=== PATIENT | male | born 1980 | race Hispanic/Latino ===

== ENCOUNTER 2016-06-27 13:43 | Inpatient (IN) | payer SELFPAY ==
[2016-06-27] VITALS (8 sets, daily range): BP systolic 130–135; BP diastolic 73–81; PULSE 88–115; RESP 15–20; O2SAT 95–98
[~2016-06-27] VITALS: Ht 175.3 cm; Wt 58.2 kg
[~2016-06-27 13:43] MED LIST: LEVO750T9 PO
[2016-06-27] MEDS ORDERED: 0.9% Sodium Chloride 1,000 ML IV ONE ×2 (14:15→15:10)
--- NOTE | 2016-06-27 14:15 | ED.REPORT ---
HPI-Syncope Date of Service Jun 27, 2016 ED Provider: Cooper Pat MD History of Present Illness: Send from Urgent Care Pt is a 36 y.o. Bangladeshi-speaking male who presents to the ED from after having 2 syncopal episodes in the office after coughing. Pt reports that he only remembers getting dizzy at the office. Associated white productive cough, fatigue, chills, diaphoresis, SOB, and pain between shoulder blades onset last night. Pt states sx are similar to when he has had pneumonia in the past, yet more painful. He denies recent sick contacts. During exam aerial photograph interpreter machine was cutting in and out and questions and responses had to be repeated multiple times. Nursing Notes Stated Complaint: SYNCOPE Chief Complaint: General Complaint Nursing Notes Reviewed: Yes (Y) Allergies: Coded Allergies: No Known Allergies (Verified Allergy, Unknown, 11/25/15) Scheduled Levofloxacin (Levaquin) 750 Mg Tablet 750 MG PO DAILY General Time Seen by Provider: 14:03 Chief Complaint Lost consciousness Syncope Description: Multiple episodes Hx Obtained From: Patient Arrived By: Walk-in Onset Occurred: Just prior to arrival Progression Since Onset: Resolved Location: : Back Quality: Painful Severity: Current: Severe Recent Healthcare: Recent doctor visit Similar Sx Previous: Yes Past Medical History Past Medical History none reported Past Surgical History none reported Smoking History Current Every Day Smoker Social History Alcohol Use: 3-5 per day Drug Use: Denies drug use Occupation lives with girlfriend, work at [employer] Ambulatory Status Independent Review of Systems Constitutional: Reports: Chills, Fatigue Respiratory: Reports: Prod cough, white, Shortness of breath Musculoskeletal: Reports: Back pain Skin: Reports Diaphoresis Neurologic: Reports: Syncope Complete sys rev & neg: except as marked. Physical Exam Initial Vital Signs Vital Signs (First) Date Time Temp Pulse Resp B/P Pulse Ox O2 Delivery O2 Flow Rate FiO2 06/27/16 13:43 38.0 93 15 130/73 98 Room Air Initial VS: Reviewed, Vital signs abnormal Head / Eyes: Atraumatic, Normocephalic Abdomen / GI: No distention Upper Extremities: Vascular intact, Neuro intact Skin: Warm, Dry, No cyanosis Psychiatric: Mood/affect normal, Behavior normal, Normal thought content General/Constitutional: Awake, Alert, Not toxic appearing Distress / Hydration: Positive: Dehydration mild Appearance / Presentation: Positive: Cachectic Appears fatigued Rigors and chills so severe it is difficult for pt to hold onto Tylenol Respiratory / Chest: Atraumatic, No respiratory distress Coarse lung sounds bilaterally with scattered rhonchi Cardiovascular: Regular rhythm, No murmurs, No rubs, Peripheral circulation NL Heart Rate / Rhythm: Positive: Tachycardia Lower Extremity / Pelvis / MS: Atraumatic, Inspection NL, No deformity, Neurologic intact, Vascular intact Neurologic: Oriented X3, Speech NL Interpretation & Diagnostics Lab Results Interpretation Result Diagram: 06/27/16 1400 06/27/16 1400 Test 06/27/16 14:00 White Blood Count 17.3th/mm3 (3.8-10.1) Red Blood Count 4.97mil/mm3 (4.40-5.80) Hemoglobin 15.2g/dL (13.8-17.2) Hematocrit 43.3% (41.0-50.0) Mean Corpuscular Volume 87.1fL (81-100) Mean Corpuscular Hemoglobin 30.6pg (27.0-35.0) Mean Corpuscular Hemoglobin Concent 35.1% (32.0-37.0) Red Cell Distribution Width 12.5% (12.3-15.4) Platelet Count 327bil/L (150-400) Neutrophils (%) (Auto) 89.2% (40-74) Lymphocytes (%) (Auto) 5.4% (14-46) Monocytes (%) (Auto) 5.0% (4-12) Eosinophils (%) (Auto) 0% (0-5) Basophils (%) (Auto) 0.2% (0-3) D-Dimer 1.6mg/L (<0.50) Sodium Level 130mEq/L (134-144) Potassium Level 3.9mEq/L (3.5-5.2) Chloride Level 88mEq/L (97-108) Carbon Dioxide Level 20mmol/L (18-29) Blood Urea Nitrogen 11mg/dL (6-20) Creatinine 0.57mg/dL (0.76-1.27) Estimat Glomerular Filtration Rate 172mL/min (>59) Glucose Level 105mg/dL (60-99) Lactic Acid Level 2.8mmol/L (0.4-2.0) Calcium Level 8.9mg/dL (8.5-10.1) Total Bilirubin 0.6mg/dL (0.0-1.2) Aspartate Amino Transf (AST/SGOT) 64U/L (0-50) Alanine Aminotransferase (ALT/SGPT) 43U/L (0-44) Alkaline Phosphatase 119U/L (25-150) Total Protein 6.9g/dL (6.4-8.4) Albumin 4.3g/dL (3.4-5.0) Lab Results Interpretation: CBC positive leukocytosis next Jeff CMP mild hyponatremia Lactic acid elevated D-dimer elevated Blood cultures 2 pending Fungal blood cultures 2 pending Sputum culture for acid fast bacilli initiated RT consulted Point of Care Testing: Lactate elevated ECG Interpretation Time: 14:27 Interpreted by: ED physician Normal ECG Interpretation: Normal sinus rhythm, No acute ischemic changes Rhythm / Conduction: Tachycardia (rate of ) CBC Interpretation WBC elevated Cardiac / Vascular Interp D-Dimer elevated X-Ray Chest Interpretation Chest Xray Interpretation: IMPRESSION: No acute cardiopulmonary disease. Dictated by: Lukasz Canales MD on 06/27/16 at 15:00 Approved by: Lukasz Canales MD on 06/27/16 at 15:00 CT Chest Interpretation IMPRESSION: 1. No evidence for central pulmonary embolism. 2. Bilateral nodular infiltrates. Several nodules demonstrate appearance of central cavitation. There is peripheral halo pulmonary nodules. Differential diagnoses include atypical infections including fungal or mycobacterial pneumonia. Recommend clinical correlation. 3. Hepatic steatosis. Dictated by: Lukasz Canales M.D. on 06/27/2016 at 16:29 Approved by: Lukasz Canales M.D. on 06/27/2016 at 16:32 Re-Eval/Medical Decision Med Decision/Clinical Course This is a 36-year-old male who is sent over from urgent care having had sick B after coughing spell. The patient moved from [place] 17 years ago, has been vaccinated with BCG but has never had a known TB exposure or history of prior TB. He has noted an unintentional incidental 30 pound weight loss he estimates over the past few months, some night sweats, and then 2 days ago started developing increasing cough with clear sputum-no hemoptysis-and shaking chills. He presents febrile, with pronounced rigors today. He does not feel dyspneic. He has nausea. Exam he does appear ill. He is no longer hypotensive he was initially hypotensive immediately following his syncope according to urgent care, and had no episodes of hypotension in the ED. However again he does appear ill, slightly diaphoretic and incredibly fatigued. He has rigors intermittently-to the point that he had challenges taking his oral Tylenol for his fever due to the rigors. He has a few scattered rhonchi, but again is not tachypneic or dyspneic although is mildly tachycardic. I do not appear she murmurs. He has no swelling in his lower extremities, and I do not appreciate clear findings of suggest pulmonary embolus, but due to his tachycardia he has PERC positive. His chest x-ray was negative. His blood work is notable for an elevated lactic acid, severe leukocytosis and blood cultures are pending. At this point the negative chest x-ray, highly concerning clinical presentation most suspicious for pneumonia and PE, but having symptoms to the point this syncope, a d-dimer was added and it was positive and sent for the CT angiogram underwent. PE protocol. This was negative for PE, but positive for nodular pneumonia, with cavitation component, racing the spectrum of tubercular, or fungal etiologies. The patient is placed in isolation. Acid-fast sputums have been ordered. I consulted with infectious disease recommends treatment with ceftriaxone and Zithromax while pursuing the isolation, acid-fast bacilli. He requested adding the urine antigens for Legionella and strep pneumo, so these been ordered. The patient received IV fluids, Tylenol and is improved. And is being admitted for further management. Source of Hx: Old records Re-Evaluation/Progress #1: Time of Eval: 15:47 Re-Evaluation/Progress Note: Pt rechecked. Discussed lab results and need for CT, pt understands and agrees with plan. Re-Evaluation/Progress #2: Time of Eval: 16:36 Re-Evaluation/Progress Note: Pt rechecked. Discussed need for admit, pt undertsands and agrees with plan. Pt denies hx of TB or contact with anyone who had TB. He reports that he had a BHCG vaccination in the past. Other than immigrating from [place] 17 years ago he has not traveled. Consultation #1: Referral / Consult Name: Mauro Nassar MD Call Returned at: 16:44 Director Of Materials Management: Will see patient Note: Consulted with Dr. Nassar, infectious disease, about pt's differential diagnosis of TB. Recommends isolation and ordering AFB. States Quantiferon Gold is not extremely useful in this situation. Will see pt tomorrow. Consultation #2: Referral / Consult Name: William Webster Ramona DO Consulted With: Hospitalist Call Returned at: 17:10 Director Of Materials Management: Will see patient, Agrees with eval, Agrees with plan, Accepts admit Note: Discussed pt condition, differential dx of TB, and consult with Dr. Nassar. Dr. Webster accepts admit. Differential Diagnosis: Positive: Sepsis, Negative: Acute coronary syndrome, Alcohol abuse, Anemia, Autonomic dysfunction, Cerebrovascular accident, Chest pain, acute, Hypoglycemia, Myocardial infarction Discharge & Departure Impression: Primary Impression: Pneumonia Pneumonia type: due to unspecified organism Laterality: unspecified laterality Lung location: unspecified part of lung Qualified Code: B99.9 - Unspecified infectious disease Additional Impressions: Syncope Syncope type: unspecified Qualified Code: R55 - Syncope and collapse Night sweats Cavitating mass of lung Disposition: ADMITTED TO HOSPITAL Discharge Condition All VS Reviewed: Yes Condition: Stable Referrals: NOPCP (PCP) [facility] Attestation Portions of this note were transcribed by Lonny Toscano. I, Dr. Pat personally performed the history, physical exam and medical decision-making; I reviewed and confirmed the accuracy of the information in the transcribed note. Signed by: Ct To, 06/27/16 and [id number]. copies to: [facility] Cooper Pat MD Jun 27, 2016 14:15 LONNY TOSCANO Jun 27, 2016 14:39
[2016-06-27 14:27] LABS: BASOPHILS % (AUTO) 0.2 % (0-3); EOSINOPHILS % (AUTO) 0 % (0-5); Mean Corpuscular Hemoglobin 30.6 pg (27.0-35.0); Mean Corpuscular Volume 87.1 fL (81-100); NEUTROPHILS % (AUTO) 89.2 % (40-74); Platelet Count 327 bil/L (150-400)
--- NOTE | 2016-06-27 15:16 | DRSVH ---
PROCEDURE: X-RAY CHEST ONE VIEW, PORTABLE ([id number]) INDICATIONS: fever, cough, syncope TECHNIQUE: One view of the chest was acquired. COMPARISON: [facility], CR, XR CHEST 2VW, 11/25/2015, 14:57. FINDINGS: Surgical changes and devices: None. Lungs and pleura: No pleural effusions or pneumothorax. Lungs are clear. Mediastinum: Mediastinal contours appear normal. Heart size is normal. Bones and chest wall: No suspicious bony lesions. Overlying soft tissues appear unremarkable. IMPRESSION: No acute cardiopulmonary disease. Dictated by: Lukasz Canales M.D. on 06/27/2016 at 15:00 Approved by: Lukasz Canales M.D. on 06/27/2016 at 15:00
--- NOTE | 2016-06-27 16:33 | DRSVH ---
PROCEDURE: CT ANGIO CHEST PULMONARY EMBOLISM ([id number]) INDICATIONS: CP, Syncope, Dimer + TECHNIQUE: After the administration of intravenous contrast, 2 mm thick sections acquired from the pulmonary api elmer to the posterior costophrenic angles. 3-dimensional maximum intensity projection (MIP) coronal a nd sagittal reformats were then acquired through the thorax. For radiation dose reduction, the follo wing was used: automated exposure control, adjustment of mA and/or kV according to patient size. COMPARISON: [facility], CR, XR CHEST 1VW (PORTABLE), 06/27/2016, 14:38. [facility], CR, XR CHEST 2VW, 11/25/2015, 14:57. FINDINGS: Image quality: Excellent. Pulmonary arteries: Pulmonary arteries are normal in size, and demonstrate no intraluminal filling d efects to suggest central pulmonary embolism. Lungs and pleura: There are multiple lung nodules bilaterally involving the right upper, middle and l ower lobes and left lower lobe. Several nodules demonstrate central cavitation. Many nodules have per ipheral halo. No pleural effusions or pneumothorax. Central and peripheral airways are patent. Mediastinum: Heart size is normal, without pericardial effusion. No mediastinal or hilar adenopathy . Thoracic aorta is normal in caliber and enhancement. Esophagus is normal in caliber, without hiat al hernia. Bones and chest wall: No suspicious bony lesions. Ribs and thoracic spine appear intact throughout. Thyroid gland is normal. No axillary or supraclavicular adenopathy. Abdomen: There is hepatic fatty infiltration. Visualized upper abdominal solid organs appear normal in the early arterial phase of enhancement. IMPRESSION: 1. No evidence for central pulmonary embolism. 2. Bilateral nodular infiltrates. Several nodules demonstrate appearance of central cavitation. There is peripheral halo pulmonary nodules. Differential diagnoses include atypical infections including f ungal or mycobacterial pneumonia. Recommend clinical correlation. 3. Hepatic steatosis. Dictated by: Lukasz Canales M.D. on 06/27/2016 at 16:29 Approved by: Lukasz Canales M.D. on 06/27/2016 at 16:32
[2016-06-27] MEDS ORDERED: cefTRIAXone Inj 2,000 MG in Dextrose 5% 50 ML IV ONE (16:50)
[2016-06-27] MEDS ORDERED: Vancomycin Dose per Pharmacist XX ONE (16:50)
[2016-06-27] MEDS ORDERED: Vancomycin Inj 1,250 MG in 0.9% Sodium Chloride 250 ML IV ONE (17:00)
[2016-06-27] MEDS ORDERED: Alum-Mag Hydrox-Simeth 30 mL Suspension PO PRN (17:15)
[2016-06-27] MEDS ORDERED: Polyethylene Glycol (PEG) 17 Gm Powder PO PRN (17:15)
[2016-06-27] MEDS ORDERED: Ondansetron 2 mg/mL 2 mL Inj IVPUSH PRN (17:15)
[2016-06-27] MEDS: cefTRIAXone Inj 2,000 MG in Dextrose 5% Minibag Plus 50 ML IV SCH (17:20)
--- NOTE | 2016-06-27 17:29 | PCM.HPMED ---
Subjective Date of Service Jun 27, 2016 Primary Provider: Admitting Physician: Khoi Avendaño MD Primary Care Physician: Nopcp Attending Physician: Khoi Avendaño MD Chief Complaint: Worsening cough, chills, sweats, and fever. History of Present Illness: Patient is a 36-year-old male moved from [place] 17 years ago presenting to the emergency room on referral from urgent care facility following presentation for 2 syncopal episodes yesterday and today in addition to worsening cough chills sweats and fever noted over past few days. More chronically patient has noted a decreased appetite and approximate 30 pound weight loss over the past couple of months. Additionally night sweats separate from the worsening chills and fevers experienced over past day and a half, have been present for a number of weeks though he is not precisely sure duration. 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 Specifically he denies any contact or exposure with persons infected with tuberculosis, influenza, or pneumonia. Patient further notes that he did receive a tubercular vaccine while [place] many years prior, never had a known exposure. His medical history is otherwise relatively benign, he takes no medications, and has never had any surgeries. Your evaluation demonstrated lactic acidosis hypoxia leukocytosis, and CT findings demonstrating cavitary lesions concerning for not only pneumonia or possible tubercular or other pulmonary process. Infectious disease specialist was notified from ER and recommended obtaining sputum samples, negative isolation, refraining from extensive tubercular evaluation at this time rather opting for supportive care treatment of community-acquired infection and further observation. Patient was in stable condition at time my evaluation ER, noted already feeling somewhat improved since IV therapy, not currently experiencing sweats or chills, and in fact did have some appetite. No histologic some increased work of breathing, he denied any chest pains also denied any palpitations. As noted he had appetite while in ER and denied any nausea vomiting abdominal pain or other gastrointestinal symptoms. Also denied any dizziness blurred vision, and has not had a recurrence of lightheadedness since his arrival to the emergency department though he is also not risen from the bed. 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 He is mildly diaphoretic and skin is warm to touch, cheeks are flushed, extremities are warm and well-perfused. Oropharynx demonstrates erythema, with a white coating of tongue. Significant anterior cervical lymphadenopathy is noted bilaterally. Pupils are round reactive to light and accommodation Lung jerry demonstrate coarse breath sounds without overt consolidation. Wheezing is noted on expiration. Heart demonstrates an elevated rate but irregular rhythm. No murmurs rubs or gallops. Abdomen is soft and nontender. No organomegaly noted on palpation. Normoactive bowel sounds Extremities are thin but well perfused. No edema is noted no calf pain on palpation. Neurologic exam is nonfocal, no tremors or other gross abnormality is noted during my examination. Skin exam is essentially benign no rashes or other lesions. Lab and Diagnostics Result Diagram: 06/27/16 1400 06/27/16 1400 Assessment & Plan 36-year-old male immigrated from [place] 17 years ago presenting today on referral from urgent care for fever cough chills, syncopal episodes and recent history of night sweats, in addition to 30 pound weight loss, admitted for further evaluation and treatment for evident pneumonia with possible tubercular infection. 1. Sepsis secondary to pneumonia - Patient demonstrating fever, leucocytosis, tachycardia meeting sirs criteria in addition to an organ failure evidenced by hypoxia in addition to elevated lactic acid level. - As per recommendations from infectious disease specialist Dr. Maruo Nassar, will place patient on antibiotics appropriate for community-acquired pneumonia at this time, while additionally placing patient in negative isolation room to consider additional diagnoses including tubercular infection discussed below. - We will continue patient on intravenous fluids, trend serial lactic acid levels to assess for response of therapy. - Supplemental oxygen provided as needed. - Additional studies pending including urine strep and Legionella antibodies, and addition to fungal blood cultures which can account for cavitating lung lesions. - Patient currently placed on Rocephin and azithromycin cover community- acquired infection only. 2. Cavitating lung lesions/recent weight loss /possible tuberculosis infection - On request from infectious disease specialist will refrain from further workup of possible tubercular disease aside from sputum cultures obtained in emergency department - Additional studies as noted above, to evaluate further for underlying cause. 3. Syncopal episode - Likely secondary to dehydration and hypotension in the setting of severe infection. - Patient has responded well to volume repletion, continue to monitor at this time but no further intervention aside from volume resuscitation. 4. Transaminitis - Etiology is unclear, may be related to alcohol use, nonalcoholic fatty liver disease/panic steatosis, but also could have viral etiology - Current studies pending include acute hepatitis panel, will continue to trend liver functions. 5. Hyponatremia - Again likely secondary to volume depletion, continue intravenous fluids at 100 mL per hour in addition to allowing oral intake. - Follow-up a.m. levels. Pain Evaluation: Adequate Pain Control GI Prophylaxis: Not indicated VTE Prophylaxis: SCDs Resuscitation Status: CPR: Attempt Resuscitation Time spent 50 minutes William Webster DO Jun 27, 2016 17:29
[2016-06-27] MEDS ORDERED: Azithromycin Inj 500 MG in Dextrose 5% w/Vial Mate 250 ML IV ONE (17:40)
[2016-06-27 18:11] LABS: APPEARANCE,URINE CLEAR (CLEAR,HAZY); COLOR,URINE YELLOW (YELLOW); OCCULT BLOOD,URINE TRACE (NEGATIVE); UROBILINOGEN,URINE NORMAL (NORMAL)
[2016-06-27] MEDS: 0.9% Sodium Chloride 1,000 ML IV SCH (18:31)
--- NOTE | 2016-06-27 19:06 | NUR ---
Admit Arrived to [facility] room 1001 via stretcher at 18:25. Report received from Nilda in the ER. Pt is alert and oriented, with chills and rigors. Febrile, otherwise VSS, although HR is very irregular. Obtained orders for tele and admin IVF and antibiotics as ordered. Repeat lactic acid pending. Primarily Syriac speaking, although he does understand and speak some Chilean. Educated pt and girlfriend on airborne respirator precautions.
[2016-06-27 19:50] LABS: Magnesium 1.5 mg/dL (1.6-2.6)
[2016-06-28] VITALS (8 sets, daily range): BP systolic 122–135; BP diastolic 73–81; PULSE 65–82; RESP 16–20; O2SAT 95–98
--- NOTE | 2016-06-28 02:56 | NUR ---
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 pt denies taking any home medications. he complained of pain in his back that he feels is his lungs hurting. he said the pain was a 6/10. he was given 650mg of PO tylenol and said his pain was "much better" upon reassessment. pt still has rigors and chills needs SBA to the bathroom. early on in the shift pt girlfriend helped pt to the bathroom and he urinated in the toilet. it was explained to pt that he needed to go in the urinal and he was reminded to call nursing staff before getting up. urinal is a bedside, urine sample is still needed. pt lactic acid were 1.1 and 0.7, was notified who gave the ok to cancel the 3rd lactic acid since they had normalized. HR was elevated at start of shift and monitoring analyst called once to say HR was up into the 140s, the pt was out of bed at the time. however HR has decreased throughout the shift and he is now SR 60-70s. BP is stable and he is currently afebrile. care continues.
[2016-06-28] MEDS: 0.9% Sodium Chloride 1,000 ML IV SCH ×2 (05:17→15:21)
[2016-06-28 05:56] LABS: BASOPHILS % (AUTO) 0.1 % (0-3); EOSINOPHILS % (AUTO) 0.2 % (0-5); MONOCYTES % (AUTO) 5.5 % (4-12); Mean Corpuscular Hemoglobin 30.8 pg (27.0-35.0); Mean Corpuscular Volume 88.5 fL (81-100); NEUTROPHILS % (AUTO) 82.9 % (40-74); Platelet Count 225 bil/L (150-400)
[2016-06-28] MEDS: Azithromycin Inj 500 MG in Dextrose 5% w/Vial Mate 250 ML IV SCH (10:37)
--- NOTE | 2016-06-28 12:44 | NUR ---
Social Work-screening: Data:EMR reviewed. Pt is a 36 y/o male who was admitted on 06/27/16 for pneumonia per H&P. Pt does not have insurance or PCP. PT resides at home with his family where he remains independent with ADLs. Per RN notes, pt has been up independent in his room. Medical team ruling pt out for TB. ID Md to see pt. RCA saw pt and screened, pt is over income for Medicaid services. [facility] application has been provided. Pt may benefit from PCP appointment through [facility] due to having sliding scale. No anticipated discharge needs. SW will continue to follow if needs arise. Assessment:Pt who is independent at baseline. Plan:Pt to discharge home when medically stable via POV. [facility] application has been provided. No anticipated discharge needs. SW will continue to follow if needs arise. JOSE FRANCISCO Scott
--- NOTE | 2016-06-28 15:22 | PCM.PNMED ---
Subjective Date of Service Jun 28, 2016 Subjective reports night sweats. otherwise, denies any new issues/complaints. Exam Vital Signs Vital Sign - Last Date Time Temp Pulse Resp B/P Pulse Ox O2 Delivery O2 Flow Rate FiO2 06/28/16 10:45 77 06/28/16 10:32 37.0 16 135/80 96 Room Air Intake and Output 06/27/16 06/27/16 06/28/16 Cumulative From/Thru 15:00 23:00 07:00 06/27/16 13:43 - 06/28/16 06:19 Intake Total 1000 ml 2299 ml 3299 ml Output Total 900 ml 900 ml Balance 1000 ml 1399 ml 2399 ml Intake Oral 1200 ml 1200 ml IV Total 1000 ml 1099 ml 2099 ml Output Urine Total 900 ml 900 ml # Voids 3 3 # Bowel Movements 1 1 General: Alert, Cooperative, No Acute Distress Eyes: Scleral Anicteric Nose: Mucous Membr Moist/[place] Mouth: Mucous Membr Moist/[place] Neck: Supple Chest & Lungs: Chest Wall Normal, Clear to auscultation & percussion Cardiovascular: Regular Rate/Rhythm Pulses: NL carotid, radial, femoral, DP, PT Abdomen: Non-tender, Non-distended, Normoactive bowel tones, Soft Extremities: No cyanosis/clubbing/edma bilat Neurological: Grossly Neurologically Intact, Normal Speech IVs and Medications Medications Reviewed: Medications were reviewed in detail Lab and Diagnostics Result Diagram: 06/28/1652906/28/16529 Assessment & Plan 36-year-old male immigrated from [place] 17 years ago presenting with fever cough chills, syncopal episodes and recent history of night sweats, in addition to 30 pound weight loss, admitted for further evaluation and treatment for evident pneumonia with possible tubercular infection. # Sepsis secondary to pneumonia - On admission demonstrating fever, leucocytosis, tachycardia meeting sirs criteria in addition to an organ failure evidenced by hypoxia in addition to elevated lactic acid level. Clinically improving - ID consulted. will f/u w/ recs - c/w current with current Abx for now. - f/u pending cultures. # Acute lactic acidosis. poa. Resolved # Cavitating lung lesions/recent weight loss /possible tuberculosis infection - f/u pending sputum cultures # Syncopal episode, prior to admission. - Likely secondary to dehydration and hypotension in the setting of severe infection. - Patient has responded well to volume repletion, - continue to monitor - Check Trop - check Echo # Mild acute Transaminitis. poa. - Resolved with IVF # Acute Hyponatremia. poa - Resolved with IVF Dispo: 2-3 days GI Prophylaxis: Not indicated VTE Prophylaxis: SCDs VTE Mechanical Devices: Intermittant Pneumatic CD Resuscitation Status: CPR: Attempt Resuscitation Time spent 35 min Tony Molina Jun 28, 2016 15:22
[2016-06-28] MEDS: cefTRIAXone Inj 2,000 MG in Dextrose 5% Minibag Plus 50 ML IV SCH (17:52)
--- NOTE | 2016-06-28 18:43 | NUR ---
Activity Patient independent in room. Reports 1-2/10 left sided lung pain. Denies nausea. Patient stated feeling better today. Patient repositions self for comfort. Call light and tray table within reach. Will continue to monitor patient hourly.
--- NOTE | 2016-06-28 21:12 | CONS ---
[address] [address] CONSULTATION REPORT PATIENT: ALAN CALVIN : 1980 MR#: [id number] ADMIT: 06/27/2016 JOB ID: [id number] CORRECTED REPORT: DATE OF SERVICE: 06/28/2016 REASON FOR CONSULTATION: Cavitating pulmonary nodules. HISTORY OF PRESENT ILLNESS: I was called yesterday evening or late afternoon by the emergency department regarding this patient and recommended he be admitted to isolation. The patient is a 36-year-old gentleman, who originally [place] from [facility], [place]. He came to the [place] 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 He reports that he was in his usual good state of health until about a year ago, when he started to develop a recurrent but sometimes severe cough associated with night sweats and some weight loss. He notes that these symptoms have take gotten worse over time. He states that these symptoms were really pretty significant throughout 2016, and at various times, he sought evaluation including some outpatient visits, where he had chest x-rays which did not show a cause for his chronic cough and progressive weight loss. He states that in the weeks leading up to his admission yesterday that his night sweats became much more intense and his weight loss accelerated. This was associated with increasing productive cough. He reports that the cough is productive of some relatively thick sputum but never bloody. He notes that in association with his worsening overall health, weight loss, sweats, and cough, he has had some near-syncopal or syncopal episode as well as some fever. He estimates his total weight loss over the last year is 30 pounds. He has no sick contacts and knows of no one in his family with tuberculosis. He does relate that he had the BCG vaccine as a child in [place] which, of course, all citizens receive as small children. During his emergency department evaluation, he was found to have some minimal lactic acidosis as well as leukocytosis. The chest x-ray was negative, but a CT scan of the chest showed cavitating nodules which caused concern about possible TB, and for that reason, he was admitted. He notes that just in less than 24 hours here in the hospital, during which he has received IV fluids and broad-spectrum antibiotics aimed at community-acquired pneumonia, he has already started to improve. Today, he has had no more of the syncope or presyncope that he had immediately before his admission and he notes his cough seems to have subsided. In reviewing more about his night sweats, he reports these are absolutely drenching and have been going on for months, if not longer. He reports having to get up and change his bed clothes at night because they are completely soaked through with sweat. PAST MEDICAL HISTORY: None known. 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 He drinks alcohol occasionally. He says a fairly minimal amount, while his significant other who is in the room with him, rolls her eyes during that answer, so I am not completely sure as to how much, but he at least episodically drinks some alcohol. He is a current every-day smoker, often about a pack a day, and he has been smoking long-term. He has never used IV drugs. FAMILY HISTORY: Negative for TB, including his parents, grandparents, and siblings. He has not had contact with anyone who he knows to have TB. REVIEW OF SYSTEMS: Was done. The patient states he has profound weight loss of more than 30 pounds, as noted, in addition to the ongoing night sweats, occasional chills and occasional fevers. He has no headache. He has no change in his vision or pain with motion of the eyes. No sore throat or trouble swallowing. No swelling in the neck. No stiff neck. He has cough as mentioned above. He does not become short of breath, however, until just a couple days ago, was actively working on the dairy farm. He had some left-sided pleuritic chest pain yesterday which seems to have improved overnight. His denies substernal chest pain. No nausea, vomiting, or diarrhea. No dysuria. No swelling of any of his joints. No skin rash. No trouble walking and no weakness. The remainder of the review of systems was negative. PHYSICAL EXAMINATION: Reveals an afebrile gentleman, temp 37.0. He was as high as 38.1 yesterday evening in the ED or shortly after admission. Pulse currently 77, respiratory rate 16, blood pressure 135/80, saturating well on room air. Mental status is completely clear. He is alert and oriented, in no acute distress. Head without temporal wasting. Eyes without conjunctivitis or scleral icterus. Extraocular movements are intact. Oral cavity: No thrush, pharyngitis, or hairy leukoplakia. Neck: Completely supple. No cervical or supraclavicular lymphadenopathy. Lungs are quite clear posteriorly. Cardiac tones: Regular rate and rhythm without murmur. Abdomen is soft and nontender without organomegaly. There is no suprapubic fullness. He does not have a Jorge catheter. Examination of the joints reveals no evidence of synovitis. There is no muscle tenderness, no peripheral edema. He has excellent peripheral pulses in his feet, as well as in his upper extremities. No skin rash is noted, and there is no peripheral edema. The patient is neurologically intact, 5/5 strength throughout. LABORATORIES: Include white count 17,000 yesterday, 13,000 today. His creatinine is 0.4. His LFTs are normal. Procalcitonin 0.21. Albumin 3.3. Urinalysis without white cells. Urine Legionella antigen is negative. Micro studies include negative blood cultures. Negative respiratory viral PCR study. One sputum for AFB has been collected and another set has been ordered. Urine pneumococcal and Legionella antigens are negative. IMAGING: Includes a chest x-ray that was basically read as normal and a CT which I carefully reviewed on the view screen. It shows bilateral nodular infiltrates, some of which have a central cavitation. IMPRESSION: This is a 36-year-old gentleman from [place], who presents with an illness which could certainly be consistent with pulmonary tuberculosis. Other possibilities here might include a fungal infection, such as Coccidioidomycosis or Aspergillosis, but the patient apparently is not immunosuppressed and denies any travel or [place] [facility]. Coccidioidomycosis would therefore seem to be unlikely on epidemiologic grounds and Aspergillus would be quite unlikely given his absence of any history of immunosuppression. One possibility that crossed my mind though, is he could have leukemia or human immunodeficiency virus which would then contribute to an increased risk of Aspergillus or some other invasive process. It is also possible that patient just has a community-acquired pneumonia, but the nodules are quite atypical for that diagnosis and his history of months of night sweats and progressive weight loss would argue against a regular community-acquired pneumonia. RECOMMENDATIONS: 1. As I discussed yesterday with the ED, we need to move ahead with a sputum AFB x3. The first two sets of the sputum AFB should be sent for nucleic acid amplification, and one of these has already been dispatched to the lab in [place] and hopefully will have an answer tomorrow. 2. Until we have back some of these results, the patient should be kept in isolation. 3. A QuantiFERON Gold will be checked. 4. HIV will be checked. 5. I would keep the patient in isolation until we have some more direction with respect to his AFB status. 6. Will continue to closely follow this complex patient with you. Thank you for this consult. ADDITIONAL INFORMATION: I failed to mention that this consult was from Dr. Dominguez who called me yesterday and personally asked me to see this patient. Addenda added by SHIRA 06/29/16 at 11:49am
[2016-06-29 00:31] VITALS: BP 134/70; PULSE 70; RESP 16; O2SAT 97
[2016-06-29] MEDS: 0.9% Sodium Chloride 1,000 ML IV SCH ×3 (01:10→20:30)
[2016-06-29 02:09] LABS: Hepatitis A Antibody IgM Negative (Negative); Hepatitis B Core Antibody IgM Negative (Negative)
[2016-06-29 05:24] VITALS: BP 125/80; PULSE 55; RESP 18; O2SAT 95
--- NOTE | 2016-06-29 06:22 | NUR ---
Activity Patient comfortable in bed, independent in room. On isolation droplet precautions. Denies CP, SOB, and abdominal discomfort. Per personnel monitor Hr [address] running SR goodson at this time.
[2016-06-29 07:10] LABS: Mean Corpuscular Hemoglobin 30.9 pg (27.0-35.0); Mean Corpuscular Volume 89.5 fL (81-100)
[2016-06-29 08:21] LABS: Magnesium 1.6 mg/dL (1.6-2.6)
[2016-06-29 08:22] LABS: TROPONIN T < 0.010 ug/L (0.0-0.011)
[2016-06-29] MEDS: Azithromycin Inj 500 MG in Dextrose 5% w/Vial Mate 250 ML IV SCH (09:14)
--- NOTE | 2016-06-29 13:48 | PCM.PNMED ---
Subjective Date of Service Jun 29, 2016 Subjective denies any new issues/complaints. Exam Vital Signs Vital Sign - Last Date Time Temp Pulse Resp B/P Pulse Ox O2 Delivery O2 Flow Rate FiO2 06/29/16 05:24 55 18 125/80 95 Room Air 06/29/16 00:31 36.5 Intake and Output 06/28/16 06/28/16 06/29/16 Cumulative From/Thru 15:00 23:00 07:00 06/27/16 13:43 - 06/29/16 06:03 Intake Total 3219 ml 2828 ml 9346 ml Output Total 2200 ml 1300 ml 4400 ml Balance 1019 ml 1528 ml 4946 ml Intake Oral 1700 ml 1200 ml 4100 ml IV Total 1519 ml 1628 ml 5246 ml Output Urine Total 2200 ml 1300 ml 4400 ml # Voids 3 # Bowel Movements 0 1 Exam General: Alert, Cooperative, No Acute Distress Eyes: Scleral Anicteric Nose: Mucous Membr Moist/[place] Mouth: Mucous Membr Moist/[place] Neck: Supple Chest & Lungs: Chest Wall Normal, Clear to auscultation bilat Cardiovascular: Regular Rate/Rhythm Abdomen: Non-tender, Non-distended, Normoactive bowel tones, Soft Extremities: No cyanosis/clubbing/edema bilat Neurological: Grossly Neurologically Intact, Normal Speech IVs and Medications Medications Reviewed: Medications were reviewed in detail Lab and Diagnostics Result Diagram: 06/29/16 0700 06/29/16 0700 Assessment & Plan 36-year-old male immigrated from [place] 17 years ago presenting with fever cough chills, syncopal episodes and recent history of night sweats, in addition to 30 pound weight loss, admitted for further evaluation and treatment for evident pneumonia with possible tubercular infection. # Sepsis secondary to pneumonia - On admission demonstrating fever, leucocytosis, tachycardia meeting sirs criteria in addition to an organ failure evidenced by hypoxia in addition to elevated lactic acid level. Clinically improving - appreciate ID consult. will f/u w/ recs - c/w with current Abx for now. - f/u pending cultures. # Acute lactic acidosis. poa. Resolved # Cavitating lung lesions/recent weight loss /possible tuberculosis infection - f/u pending sputum cultures # Syncopal episode, prior to admission. - Likely secondary to dehydration and hypotension in the setting of severe infection. - Patient has responded well to volume repletion, - continue to monitor - check Echo # Mild acute Transaminitis. poa. - Resolved with IVF # Acute Hyponatremia. poa - Resolved with IVF Dispo: 2-3 days GI Prophylaxis: Not indicated VTE Prophylaxis: SCDs VTE Mechanical Devices: Intermittant Pneumatic CD Resuscitation Status: CPR: Attempt Resuscitation Tony Molina Jun 29, 2016 13:48
[2016-06-29 15:00] VITALS: BP 145/87; PULSE 59; RESP 18; O2SAT 100
--- NOTE | 2016-06-29 15:30 | PROG NOTE ---
[address] [address] PROGRESS NOTE PATIENT: ALAN CALVIN : 1980 MR#: [id number] ADMIT: 06/27/2016 JOB ID: [id number] DATE: 06/29/2016 INFECTIOUS DISEASE FOLLOWUP NOTE: REASON FOR FOLLOWUP: Pulmonary infection, possible tuberculosis. INTERVAL HISTORY: Overnight, the patient said he has improved considerably. He has had no fevers or chills today. He notes that his shortness of breath and cough seem to be diminishing. No nausea, vomiting, diarrhea, or skin rash. No problems with his IV. PHYSICAL EXAMINATION: Reveals an afebrile, more comfortable gentleman. Temp 36.5. He has been afebrile now for about 36 hours. His pulse is 60, respiratory rate 18, blood pressure 125/80. He is saturating well on room air. The patient's mental status is completely clear. Oral cavity, no thrush or hairy leukoplakia. Lungs notable for a few rales at the right base but relatively clear. Abdomen soft and nontender. Cardiac tones: Regular rate and rhythm without murmur. IV in the left arm appears benign. LABORATORIES: Include white count, which has normalized now at 7900, platelet count 191,000. Creatinine 0.43. LDH is 410, which is quite markedly elevated. Procalcitonin 0.21. Urine without white cells. Hep C antibody negative. HIV negative. Urine legionella antigen negative. QuantiFERON Gold is pending. Pneumococcal urine antigen is negative. The first AFB smear is back and negative. We are waiting on nucleic acid amplification and additional smears. Respiratory viral PCR panel negative. Blood cultures all negative. IMAGING: Recall that the imaging yesterday with CT showed her on the with CT showed bilateral nodular infiltrates, some with cavitation. IMPRESSION: It appears less and less likely that this patient has pulmonary tuberculosis, as he is rapidly improving with antibiotics, which do not have activity against tuberculosis. This leads me to believe that most likely he just has a community-acquired pneumonia with a rather atypical CT pattern. This would not explain, however, his report that he has had an illness with weight loss and night sweats for weeks or months and so, I think one possibility here is that he could have tuberculosis with a superimposed other bacterial process, so we cannot yet rule out completely the tuberculosis diagnosis. RECOMMENDATIONS: 1. We await the three AFBs, and I discussed their collection with the nurse. 2. It is reported that later today we will have back nuclear acid amplification result. If that is negative, he can be released from isolation. 3. We await the QuantiFERON Gold. 4. Will continue with our current antibiotics.
--- NOTE | 2016-06-29 17:38 | DRSVH ---
[facility] [address] [place] [address] Echocardiogram Report Name: ALAN CALVIN MStudy Date: 017 Height: 69 in Hospital Exam Location: [facility] Weight: 12 8 lb Gender: Male BSA: 1.7 m2 : 1980 Age: 36 yrs BP: 125/80 mmHg Reason For Study: Syncope Performed By: Simi Solis Referring Physician: DAYDAY OLIVERA Interpretation Summary The left ventricle is normal in size. Left ventricular systolic function is low normal. Left ventricular ejection fraction is estimated to be 50%. There are no focal wall motion abnormalities. The right ventricle is normal in size and function. The right ventricular systolic pressure is estimated at 25 mmHg assuming a right atrial pressure of 3 mm Hg. Both atria are normal in size. There is no significant valvular heart disease. The aortic root is normal size. Procedure: A two-dimensional transthoracic echocardiogram with color flow and Doppler was performed. The study quality was technically good. There is no prior echocardiogram noted for this patient. The patient was in normal sinus rhythm during the exam. Left Ventricle: The left ventricle is normal in size. There is normal left ventricular wall thickness. Left ventricular systolic function is low normal. Left ventricular ejection fraction is estimated to be 50%. There are no focal wall motion abnormalities. Assessment of diastolic parameters indicates normal left ventricular diastolic function and normal filling pressures. Right Ventricle: The right ventricle is normal in size and function. Atria: Both atria are normal in size. The interatrial septum is intact with no evidence for an atrial septal defect. Mitral Valve: The mitral valve is normal in structure and function. There is trace mitral regurgitation. Aortic Valve: The aortic valve is normal in structure and function. Tricuspid Valve: The tricuspid valve is normal in structure and function. There is trace tricuspid regurgitation. The right ventricular systolic pressure is estimated at 25 mmHg assuming a right atrial pressure of 3 mm Hg. Pulmonic Valve: The pulmonic valve is not well seen, but is grossly normal. There is no pulmonic valvular regurgitation. There is no significant valvular heart disease. Great Vessels: The aortic root is normal size. The dimensions of the ascending aorta are normal. The aortic arch is normal in size. The pulmonary artery is not well visualized, but is probably normal size. The IVC is of normal diameter and collapses greater than 50% with a sniff. This suggests a low right atrial pressure of 3 mm Hg. Pericardium/ Pleura There is no pericardial effusion. There is no pleural effusion. MMode/2D Measurements & Calculations LVIDd: 4.7 cmLA dimension: 3.1 cm RA long axis: 4.0 cm Ao root diam LVIDs: 3.4 cm FS: 27.4 % LA A2 area: 14.5 cm RA area: 12.0 cm Aortic Jxn: 2.4 cm IVSd: 0.79 cmLA A4 area: 12.4 cm RA vol: 31.0 ml asc Aorta Diam LVPWd LA length (vol) RA : 18.2 ml/m2 : 0.8cm Ao Arch Diam (Prox LA vol: 37.4 ml Trans): 2.8 cm LA vol index IVC diam: 1.9 cm EDV(MOD-sp2) LV araya. diameter/BSA LV sys. diameter/BSA RVD1 (basal) (cm/m^2): 2.7 (cm/m^2): 2.0 Doppler Measurements & Calculations Ao V2 max MV E max filemon MV E/A: 1.5 TR max filemon : 125.4 cm/sec : 79.9 cm/sec Med Peak E' Filemon : 236.0 cm/sec Ao max PG MV A max filemon TR max P.3 mmHg : 6.3 mmHg : 53.5 cm/sec E/E' med: 6.6 PA V2 max: 81.3 cm/sec Ao mean PG Lat Peak E' Filemon PA mean P.4 mmHg : 3.4 mmHg PA Accel Time: 0.13 sec E/E' lat: 6.0 E/e' average: 6.3 Pulm A Revs Dur MV A dur: 0.13 sec MV dec time Ao V2 mean PA V2 mean Pulm A Revs Dur - MV A : 0.17 sec : 86.2 cm/sec : 53.7 cm/sec Dur: -0.03 msec Ao V2 VTI : 26.2 cm Reading Physician:EMEKA
[2016-06-29] MEDS: cefTRIAXone Inj 2,000 MG in Dextrose 5% Minibag Plus 50 ML IV SCH (17:42)
--- NOTE | 2016-06-29 18:04 | NUR ---
Activity/Pain Patient independent in room. Patient on airborne respirator precautions to R/O TB. 2nd sputum sent today. One more needs to be collected in the AM (06/30/2016). Patient denies pain and nausea this shift. Call light and tray table within reach. Will continue to monitor patient hourly.
[2016-06-29 19:05] VITALS: BP 145/89; PULSE 61; RESP 18; O2SAT 100
--- NOTE | 2016-06-30 02:22 | NUR ---
ACTIVITY: Pt. awake and ambulating in his room during initial assessment, denies pain or discomfort. Pt. requested permission to go out on the hallway to ambulate, request denied for now until we get the sputum results from all 3 sputum cultures. Pt. still need to collect one more sputum in AM if possible, Pt. already collected 2 sputums. Pt. states he is not coughing therefore it is hard to get any sputum. Denies any discomfort, denies n/v. A & O, vss. On going care.
[2016-06-30] MEDS: 0.9% Sodium Chloride 1,000 ML IV SCH (05:14)
[2016-06-30 06:03] VITALS: BP 125/82; PULSE 62; RESP 18; O2SAT 99
[2016-06-30] MEDS: Azithromycin Inj 500 MG in Dextrose 5% w/Vial Mate 250 ML IV SCH (09:09)
[2016-06-30] MEDS ORDERED: LEVO750T9 PO (11:41)
--- NOTE | 2016-06-30 11:55 | PROG NOTE ---
[address] [address] PROGRESS NOTE PATIENT: ALAN CALVIN : 1980 MR#: [id number] ADMIT: 06/27/2016 JOB ID: [id number] DATE: 06/30/2016 INFECTIOUS DISEASE FOLLOW UP NOTE: REASON FOR FOLLOWUP: Pneumonia. INTERVAL HISTORY: Overnight, the patient says he is feeling much better. He has no more of the tremor or weakness he had when he came in. He denies fevers, chills or sweats. No significant cough and he is no longer short of breath. PHYSICAL EXAMINATION: Reveals an afebrile gentleman, temperature 36.5, pulse 62, respiratory rate 18, blood pressure 125/82. He is saturating 100% on room air. He is awake and alert and no tremor noted. Oral cavity: No pharyngeal exudates. Lungs quite clear posteriorly bilaterally. Cardiac tones: Regular rate and rhythm. Abdomen benign. No skin rash. LABORATORIES: Include white count 7900 yesterday which had completely normalized. Creatinine 0.43. Urinalysis negative. QuantiFERON Gold is still pending. HIV test is negative. Hepatitis C negative. Micro studies now include one sputum for AFB and nucleic acid implication that has come back negative and I think we can release him from isolation based upon that. Another sputum for AFB is pending and urine pneumococcal antigen is negative. Blood cultures all negative. IMPRESSION: This patient is dramatically improved at this point, and I suspect what we are dealing with here is a conventional bacteria as she got dramatically better with azithromycin and ceftriaxone. His nucleic acid implication negativity means it is quite unlikely he has TB as it is about 90% sensitive even in the presence of AFB negative sputum and certainly the patient can be safely released from isolation. RECOMMENDATIONS: 1. I would collect a third AFB sample today so we will have our full contingent of samples. 2. The patient can be released from isolation and I have indicated this to the nurses and wrote the order. 3. The patient should return to clinic and he can see me on July 14 in my outpatient clinic to follow up on his TB studies and also to see how he is doing. His infiltrate was quite abnormal for a person with conventional bacterial pneumonia, though we have gotten better without any specific treatment for mycobacteria or fungus. 4. In terms of discharge antibiotics, I think he could be reasonably discharged on Augmentin 875 b.i.d. for about five more days to complete a course of therapy. I will be signing off on this case at this time.
[2016-06-30] MEDS ORDERED: AMOX-366 PO (12:14)
--- NOTE | 2016-06-30 12:19 | PCM.DIMED ---
Discharge Instructions Date of Service Jun 30, 2016 Dates of Hospitalization Jun 27, 2016 at 17:18 Discharge Diagnosis Discharge Diagnosis # Sepsis secondary to pneumonia. present on admission. Improved # Acute pneumonia, likely community acquired. present on admission. Improving. # Acute lactic acidosis. present on admission. Resolved # Cavitating lung lesions/recent weight loss /possible tuberculosis infection - First sputum sample negative for AFB # Syncopal episode, prior to admission. - Likely secondary to dehydration and hypotension in the setting of severe infection. - Echocardiogram 06/29/16: "Left ventricular ejection fraction is estimated to be 50%. There are no focal wall motion abnormalities." # Mild acute Transaminitis. present on admission. Resolved # Acute Hyponatremia. present on admission. Resolved. Diet No restrictions Activity No restrictions Call your provider Fever or Chills, Shortness of breath, Bleeding, Chest pain, Vomitting, Excessive diarrhea Patient Instructions Seek immediate medical attention if any new or worsening signs or symptoms occur. Follow-up plan 1. Followup with Dr[facility]. Call to setup appointment. [address] [address] 2. Followup with primary care provider in 7-10 days Follow-up Provider: Mauro Nassar MD, Masoud Jun 30, 2016 12:19
--- NOTE | 2016-06-30 12:41 | NUR ---
Social Work-readiness for discharge: Data:EMR Reviewed. Pt is on day 3 of hospitalization for pneumonia per H&P. Pt may be medically stable later today or tomorrow. SW followed up with Pt at bedside, SW role explained. Pt does not have insurance and will not qualify through [facility]. Pt states he goes to [facility]. SW provided pt with [facility] application. SW also discussed DPOA/ advanced directive, pt has not complete this, SW provided him with information. Pt has been up independent in the hallways. Pt's family to provide transport home. No anticipated discharge needs. SW will continue to follow if needs arise. Assessment:Pt who is independent at baseline. Plan:Pt to discharge home when medically stable via POV. [facility] application given. No anticipated discharge needs. SW will continue to follow if needs arise. JOSE FRANCISCO Scott
--- NOTE | 2016-06-30 12:49 | NUR ---
Social Work-discharge: Data:EMR Reviewed. Pt is on day 3 of hospitalization for pneumonia per H&P. Pt is medically stable for discharge. Pt has been up independent in the hallways. Pt has [facility] care application and will follow up with PCP. Pt's family to provide transport home.No other discharge needs. All updated and agreeable to plan. Assessment:Pt who is independent at baseline. Plan:Pt to discharge home today via POV. No other discharge needs. All updated and agreeable to plan. JOSE FRANCISCO Scott
--- NOTE | 2016-06-30 13:00 | NUR ---
Discharge Pt d/c at 1245. All paperwork signed and d/c instructions reviewed and understood. All questions answered. IV removed intact. Pt reports feeling better and no px. Instructed to have prescription for amoxicillin today when leaving and take 1st dose tonight with food.
--- NOTE | 2016-06-30 16:24 | PCM.DC.MED ---
Discharge Summary Date of Service Jun 30, 2016 Dates of Hospitalization Date of Hospital Admission Jun 27, 2016 at 17:18 Date of Discharge: Jun 30, 2016 Providers: Admitting Physician: Khoi Avendaño MD Primary Care Physician: Meg Attending Physician: Khoi Avendaño MD Diagnosis at Time of Discharge Diagnosis at Time of Discharge # Sepsis secondary to pneumonia. present on admission. Improved # Acute pneumonia, likely community acquired. present on admission. Improving. # Acute lactic acidosis. present on admission. Resolved # Cavitating lung lesions/recent weight loss /possible tuberculosis infection - First sputum sample negative for AFB # Syncopal episode, prior to admission. - Likely secondary to dehydration and hypotension in the setting of severe infection. - Echocardiogram 06/29/16: "Left ventricular ejection fraction is estimated to be 50%. There are no focal wall motion abnormalities." # Mild acute Transaminitis. present on admission. Resolved # Acute Hyponatremia. present on admission. Resolved. Consultations 1. ID Procedures XRay, CTs & MRIs Date of Service: 06/27/16 1414 PROCEDURE: X-RAY CHEST ONE VIEW, PORTABLE ([id number]) IMPRESSION: No acute cardiopulmonary disease. Dictated by: Lukasz Canales M.D. on 06/27/2016 at 15:00 Approved by: Lukasz Canales M.D. on 06/27/2016 at 15:00 Date of Service: 06/27/16 1531 PROCEDURE: CT ANGIO CHEST PULMONARY EMBOLISM ([id number]) IMPRESSION: 1. No evidence for central pulmonary embolism. 2. Bilateral nodular infiltrates. Several nodules demonstrate appearance of central cavitation. There is peripheral halo pulmonary nodules. Differential diagnoses include atypical infections including fungal or mycobacterial pneumonia. Recommend clinical correlation. 3. Hepatic steatosis. Dictated by: Lukasz Canales M.D. on 06/27/2016 at 16:29 Approved by: Lukasz Canales M.D. on 06/27/2016 at 16:32 Cardiac Echo Impression Date of Service: 06/29/16 1522 Echocardiogram Report Interpretation Summary The left ventricle is normal in size. Left ventricular systolic function is low normal. Left ventricular ejection fraction is estimated to be 50%. There are no focal wall motion abnormalities. The right ventricle is normal in size and function. The right ventricular systolic pressure is estimated at 25 mmHg assuming a right atrial pressure of 3 mm Hg. Both atria are normal in size. There is no significant valvular heart disease. The aortic root is normal size. Reading Physician:PM Brief History 36-year-old male immigrated from [place] 17 years ago presenting with fever cough chills, syncopal episodes and recent history of night sweats, in addition to 30 pound weight loss, admitted for further evaluation and treatment for evident pneumonia with possible tubercular infection. Hospital Course # Sepsis secondary to pneumonia - On admission demonstrating fever, leucocytosis, tachycardia meeting sirs criteria in addition to an organ failure evidenced by hypoxia in addition to elevated lactic acid level. Clinically resolved - appreciate ID consult. will f/u w/ recs - pt cleared for d/c home today by ID consult without further need for isolation. - will d/c home with 5 more days of Augmenting # Acute lactic acidosis. poa. Resolved # Cavitating lung lesions/recent weight loss /possible tuberculosis infection - further f/u by Dr. Nassar in ID clinic as outpatient # Syncopal episode, prior to admission. - Likely secondary to dehydration and hypotension in the setting of severe infection. - Patient has responded well to volume repletion, - Echo unremarkable as noted above # Mild acute Transaminitis. poa. - Resolved with IVF # Acute Hyponatremia. poa - Resolved with IVF by day of d/c lungs CTA bilat. patient ambulating without difficulty Exam Vital Signs (Last) Date Time Temp Pulse Resp B/P Pulse Ox O2 Delivery O2 Flow Rate FiO2 06/30/16 06:03 36.5 62 18 125/82 99 Room Air Test 06/27/16 14:00 06/27/16 17:40 06/27/16 19:15 06/27/16 21:35 D-Dimer 1.6mg/L (<0.50) Urine Color Yellow (YELLOW) Urine Appearance Clear (CLEAR,HAZY) Urine pH 5.0 (5.0-8.0) Urine Specific [place] <1.005 (1.003-1.035) Urine Protein Negativemg/dL (NEG,TRACE) Urine Glucose (UA) Negativemg/dL (NEGATIVE) Urine Ketones 15mg/dL (NEGATIVE) Urine Occult Blood Trace (NEGATIVE) Urine Nitrite Negative (NEGATIVE) Urine Bilirubin Negative (NEGATIVE) Urine Urobilinogen Normalmg/dL (NORMAL) Urine Leukocyte Esterase Negative (NEGATIVE) Urine RBC 0-2/hpf (0-2) Urine WBC 0-5/hpf (0-5) Urine Epithelial Cells Occasional/hpf (NONE-MOD) Urine Crystals None seen (NONE SEEN) Urine Bacteria None/hpf (NONE-FEW) Urine Hyaline Casts None/lpf (NONE) Urine Granular Casts None seen (NONE SEEN) Urine Waxy Casts None seen (NONE SEEN) Urine Red Blood Cell Casts None seen (NONE SEEN) Urine White Blood Cell Casts None seen (NONE SEEN) Urine Mucus None seen (None Seen) Urine Trichomonas None seen (NONE SEEN) Urine Yeast None (NONE SEEN) Urinalysis Comment None Urine Culture Reflexed Not indicated Procalcitonin 0.21ng/mL (0.00-0.08) Hepatitis A IgM Antibody Negative (Negative) Hepatitis B Surface Antigen Negative (Negative) Hepatitis B Core IgM Antibody Negative (Negative) Hepatitis C Antibody <0.1s/co ratio (0.0-0.9) Hepatitis C Comment Comment (.) Lactic Acid Level 0.7mmol/L (0.4-2.0) Test 06/28/16 05:30 06/28/16 05:40 06/28/16 14:20 06/29/16 07:00 Neutrophils (%) (Auto) 82.9% (40-74) Lymphocytes (%) (Auto) 11.1% (14-46) Monocytes (%) (Auto) 5.5% (4-12) Eosinophils (%) (Auto) 0.2% (0-5) Basophils (%) (Auto) 0.1% (0-3) Total Bilirubin 0.7mg/dL (0.0-1.2) Aspartate Amino Transf (AST/SGOT) 47U/L (0-50) Alanine Aminotransferase (ALT/SGPT) 33U/L (0-44) Alkaline Phosphatase 97U/L (25-150) Total Protein 5.3g/dL (6.4-8.4) Albumin 3.3g/dL (3.4-5.0) Urine Legionella pneumophilia Ag Negative (Negative) HIV (1&2) Ag and Ab, 4th Generation Non reactive (Non Reactive) White Blood Count 7.9th/mm3 (3.8-10.1) Red Blood Count 4.37mil/mm3 (4.40-5.80) Hemoglobin 13.5g/dL (13.8-17.2) Hematocrit 39.1% (41.0-50.0) Mean Corpuscular Volume 89.5fL (81-100) Mean Corpuscular Hemoglobin 30.9pg (27.0-35.0) Mean Corpuscular Hemoglobin Concent 34.5% (32.0-37.0) Red Cell Distribution Width 12.5% (12.3-15.4) Platelet Count 191bil/L (150-400) Sodium Level 138mEq/L (134-144) Potassium Level 4.2mEq/L (3.5-5.2) Chloride Level 102mEq/L (97-108) Carbon Dioxide Level 21mmol/L (18-29) Blood Urea Nitrogen 7mg/dL (6-20) Creatinine 0.43mg/dL (0.76-1.27) Estimat Glomerular Filtration Rate 238mL/min (>59) Glucose Level 83mg/dL (60-99) Calcium Level 8.6mg/dL (8.5-10.1) Magnesium Level 1.6mg/dL (1.6-2.6) Lactate Dehydrogenase 410U/L (100-190) Troponin T < 0.010ug/L (0.0-0.011) Triglycerides Level 49mg/dL (0-149) Cholesterol Level 190mg/dL (100-199) LDL Cholesterol, Calculated 72.200mg/dL (0-99) VLDL Cholesterol 9.800mg/dL HDL Cholesterol 108mg/dL (>39) Cholesterol/HDL Ratio 1.76 (0.0-4.4) Discharge Medications Discharge Medications Amoxicillin/Clav K 875-125 mg (Augmentin 875-125 mg) 1 Each Tablet 1 TABLET PO BID Prescribed by: DAYDAY OLIVERA MD Followup Plan Disposition: Home Follow-up plan 1. Followup with Dr[facility]. Call to setup appointment. [address] [address] 2. Followup with primary care provider in 7-10 days Discharge Diet: No restrictions Discharge Activity: No restrictions Patient Instructions Seek immediate medical attention if any new or worsening signs or symptoms occur. Follow-up Provider: Mauro Nassar MD Time spent 30 min copies to: Mauro Nassar MD, Masoud Jun 30, 2016 16:24
== END 2016-06-30 13:38 | disposition home or self-care (01) | DRG 871 ==
LOC: SED 13:43 → OSC 17:18
PROVIDERS: ADMIT Hospitalist; ATTEND Hospitalist
DX: A41.9 Sepsis, unspecified organism (principal); J18.9 Pneumonia, unspecified organism; E87.1 Hypo-osmolality and hyponatremia; E87.2 Acidosis; F17.210 Nicotine dependence, cigarettes, uncomplicated; E86.0 Dehydration; R63.4 Abnormal weight loss; R74.0 Nonspecific elevation of levels of transaminase and lactic acid dehydrogenase [LDH]